=== PATIENT | male | born 1955 ===

== ENCOUNTER 2020-08-13 08:00 | Inpatient (IN) | payer OTHER ==
[2020-10-07 16:41] VITALS: BMI 37.8
[2020-10-08] MEDS ORDERED: THROMBIN (BOVINE) 5,000 UNIT VIAL TP ONE (08:14)
[2020-10-08] MEDS ORDERED: methylPREDNISolone ACET (DEPO) 40 MG/1 ML VIAL ONE (08:14)
[2020-10-08] MEDS ORDERED: BACITRACIN 15 GM TUBE TOPICAL OINTMENT ONE (08:14)
[2020-10-08] MEDS ORDERED: BUPIVACAINE HCL/PF 0.5% (5MG/ML) 10 ML VIAL ONE (08:14)
[2020-10-08] MEDS ORDERED: BENZOIN/ALOE VERA/STORAX/TOLU 58 ML BOTTLE ONE (09:26)
[2020-10-08] MEDS ORDERED: ceFAZolin SODIUM 1 GM VIAL IVPB ONE (09:32)
[2020-10-08] MEDS ORDERED: ONDANSETRON 4 MG/2 ML VIAL IVPUSH PRN (12:09)
[2020-10-08] MEDS ORDERED: ACETAMINOPHEN 1000 MG/100 ML VIAL (NON FORMULARY) IVPB PRN (12:25)
[2020-10-08] MEDS ORDERED: LACTATED RINGERS SOLUTION 1,000 ML IV SCH (12:30)
[2020-10-08] MEDS ORDERED: HYDROmorphone HCl 2 MG/ML VIAL IVPB PRN (12:41)
[2020-10-08] MEDS: D5-1/2NS+20 MEQ KCL - 20 MEQ/1,000 ML INFUS.BAG IV SCH (13:28)
[2020-10-08 13:39] LABS: BASO % 0.6 % (0-2.0); EOS % 2.2 % (0-4.5); HEMATOCRIT 33.1 % (35.4-49); HEMOGLOBIN 11.3 GM/dL (11.7-16.9); LYMPH % 25.5 % (8-40); MCH 28.7 pg (25.7-33.7); MCHC 34.2 g/dl (32.0-35.9); MEAN PLT VOLUME 7.5 fl (7.5-11.1); MONO % 11.6 % (3.8-10.2); NEUT % 60.1 % (42.8-82.8); PLATELET COUNT 230 K/MM3 (134-434); RBC 3.94 M/mm3 (4.00-5.60); RDW 15.6 % (11.9-15.9)
[2020-10-08 13:56] LABS: BLOOD UREA NITROGEN 29.2 mg/dL (7-18)
[2020-10-08 14:10] LABS: CREATININE 1.1 mg/dL (0.55-1.3)
[2020-10-08] MEDS: diazePAM 5 MG TABLET PO SCH ×2 (15:19→21:19)
[2020-10-08] MEDS: POTASSIUM CHLORIDE TABS 20 MEQ TABLET.ER (FP) PO SCH ×2 (16:10→21:19)
[2020-10-08] MEDS: DOCUSATE SODIUM 100 MG CAPSULE (FP) PO SCH ×2 (16:10→21:19)
[2020-10-08] MEDS ORDERED: CEFAZOLIN 1 GM/D5W 1 GM/50 ML BAG IVPB SCH (18:00)
[2020-10-08] MEDS ORDERED: CEFAZOLIN 1 GM in DEXTROSE 5%-WATER - 1 GM/50 ML IVPB IVPB SCH (18:40)
[2020-10-08] MEDS: oxyCODONE HCL 5 MG TABLET PO PRN (18:58)
[2020-10-08] MEDS: MONTELUKAST NA 10 MG TABLET PO SCH (21:19)
[2020-10-08] MEDS: ATORVASTATIN CA 20 MG TABLET (FP) PO SCH (21:19)
[2020-10-08] MEDS: RANOLAZINE E.R. 500 MG TABLET (FP) PO SCH (21:20)
[2020-10-09] MEDS ORDERED: DEXTROSE 5%-WATER - 50 ML IVPB ONE ×2 (02:00→14:30)
[2020-10-09] MEDS ORDERED: ceFAZolin SODIUM 1 GM VIAL ONE ×2 (02:00→14:30)
[2020-10-09] MEDS: D5-1/2NS+20 MEQ KCL - 20 MEQ/1,000 ML INFUS.BAG IV SCH ×3 (03:44→12:40)
[2020-10-09] MEDS: diazePAM 5 MG TABLET PO SCH ×3 (04:42→20:35)
[2020-10-09] MEDS: DOCUSATE SODIUM 100 MG CAPSULE (FP) PO SCH ×3 (06:02→21:40)
[2020-10-09] MEDS: metFORMIN HCL 500 MG TABLET (FP) PO SCH (06:03)
[2020-10-09 07:28] LABS: BASO % 0.6 % (0-2.0); EOS % 3.6 % (0-4.5); HEMATOCRIT 31.4 % (35.4-49); HEMOGLOBIN 10.7 GM/dL (11.7-16.9); LYMPH % 16.3 % (8-40); MCH 28.5 pg (25.7-33.7); MEAN CELL VOLUME 83.7 fl (80-96); MEAN PLT VOLUME 7.2 fl (7.5-11.1); MONO % 11.7 % (3.8-10.2); NEUT % 67.8 % (42.8-82.8); PLATELET COUNT 210 K/MM3 (134-434); RBC 3.75 M/mm3 (4.00-5.60); RDW 16.1 % (11.9-15.9); WHITE BLOOD COUNT 11.1 K/mm3 (4.0-10.0)
[2020-10-09 08:02] LABS: BLOOD UREA NITROGEN 18.1 mg/dL (7-18); CALCIUM 8.6 mg/dL (8.5-10.1)
[2020-10-09 08:07] LABS: BILIRUBIN,TOTAL 0.8 mg/dL (0.2-1); TOT PROT 5.9 g/dl (6.4-8.2)
[2020-10-09 08:10] LABS: ALBUMIN 3.1 g/dl (3.4-5.0)
[2020-10-09] MEDS: TAMSULOSIN HCL 0.4 MG CAP PO SCH ×2 (08:20→09:19)
[2020-10-09] MEDS: FUROSEMIDE 20 MG TABLET (FP) PO SCH (09:19)
[2020-10-09] MEDS: RANOLAZINE E.R. 500 MG TABLET (FP) PO SCH ×2 (09:19→21:40)
[2020-10-09] MEDS: POTASSIUM CHLORIDE TABS 20 MEQ TABLET.ER (FP) PO SCH ×2 (09:20→21:40)
[2020-10-09] MEDS: METOPROLOL TARTRATE 50 MG TABLET (FP) PO SCH (09:20)
[2020-10-09] MEDS: SPIRONOLACTONE 25 MG TABLET PO SCH (09:20)
[2020-10-09] MEDS: PANTOPRAZOLE 40 MG TABLET PO SCH (09:20)
[2020-10-09] MEDS: HYDROCHLOROTHIAZIDE 25 MG TABLET (FP) PO SCH (09:20)
[2020-10-09] MEDS: LORATADINE 10 MG TABLET PO SCH (09:20)
[2020-10-09] MEDS ORDERED: ALBUTEROL SO4 HFA INHALER IH PRN (11:40)
[2020-10-09] MEDS ORDERED: PT OWN MED DRAWER 7, Y5N ONE ×2 (11:51→12:36)
[2020-10-09] MEDS ORDERED: POTASSIUM CHLORIDE TABS 20 MEQ TABLET.ER (FP) PO ONE (12:00)
[2020-10-09] MEDS: BUMETANIDE 1 MG TABLET PO SCH (12:37)
[2020-10-09] MEDS: BUDESONIDE/FORMETEROL FUMARATE 160/4.5 mcg INHALER IH SCH ×2 (12:38→21:40)
[2020-10-09] MEDS ORDERED: CEFAZOLIN 1 GM in DEXTROSE 5%-WATER - 1 GM/50 ML IVPB IVPB SCH (14:15)
[2020-10-09] MEDS: oxyCODONE HCL 5 MG TABLET PO PRN (17:31)
[2020-10-09] MEDS: ATORVASTATIN CA 20 MG TABLET (FP) PO SCH (21:40)
[2020-10-09] MEDS: MONTELUKAST NA 10 MG TABLET PO SCH (21:40)
[2020-10-10] MEDS: diazePAM 5 MG TABLET PO SCH ×3 (04:33→21:49)
[2020-10-10] MEDS: DOCUSATE SODIUM 100 MG CAPSULE (FP) PO SCH ×3 (06:15→21:48)
[2020-10-10] MEDS: metFORMIN HCL 500 MG TABLET (FP) PO SCH (06:15)
[2020-10-10] MEDS: TAMSULOSIN HCL 0.4 MG CAP PO SCH (07:53)
[2020-10-10] MEDS: HYDROCHLOROTHIAZIDE 25 MG TABLET (FP) PO SCH (09:04)
[2020-10-10] MEDS: PANTOPRAZOLE 40 MG TABLET PO SCH (09:04)
[2020-10-10] MEDS: LORATADINE 10 MG TABLET PO SCH (09:04)
[2020-10-10] MEDS: METOPROLOL TARTRATE 50 MG TABLET (FP) PO SCH (09:04)
[2020-10-10] MEDS: SPIRONOLACTONE 25 MG TABLET PO SCH (09:04)
[2020-10-10] MEDS: FUROSEMIDE 20 MG TABLET (FP) PO SCH (09:04)
[2020-10-10] MEDS: RANOLAZINE E.R. 500 MG TABLET (FP) PO SCH ×2 (09:04→21:49)
[2020-10-10] MEDS: BUDESONIDE/FORMETEROL FUMARATE 160/4.5 mcg INHALER IH SCH ×2 (09:07→21:49)
[2020-10-10] MEDS ORDERED: PT OWN MED DRAWER 7, Y5N ONE (10:13)
[2020-10-10] MEDS: POTASSIUM CHLORIDE TABS 20 MEQ TABLET.ER (FP) PO SCH ×2 (10:22→21:48)
[2020-10-10] MEDS: BUMETANIDE 1 MG TABLET PO SCH (10:22)
[2020-10-10] MEDS: LIDOCAINE 5% TOPICAL PATCH TP SCH (10:22)
[2020-10-10] MEDS: OXYMETAZOLINE 0.05% NASAL SOLUTION 15 ML BOTTLE NS PRN (10:23)
[2020-10-10] MEDS ORDERED: DEXAMETHASONE SOD PHOSPHATE 4 MG/1 ML VIAL IVPUSH ONE (11:15)
[2020-10-10] MEDS: oxyCODONE HCL 5 MG TABLET PO PRN (11:21)
[2020-10-10 12:23] LABS: CALCIUM 8.6 mg/dL (8.5-10.1)
[2020-10-10 12:24] LABS: ALBUMIN 3.3 g/dl (3.4-5.0); BLOOD UREA NITROGEN 17.8 mg/dL (7-18)
[2020-10-10 12:28] LABS: BILIRUBIN,TOTAL 0.8 mg/dL (0.2-1); TOT PROT 6.4 g/dl (6.4-8.2)
[2020-10-10] MEDS: ATORVASTATIN CA 20 MG TABLET (FP) PO SCH (21:48)
[2020-10-10] MEDS: MONTELUKAST NA 10 MG TABLET PO SCH (21:49)
[2020-10-10] MEDS ORDERED: LIDOCAINE PATCH REMOVAL MC SCH (22:00)
[2020-10-11] MEDS: DOCUSATE SODIUM 100 MG CAPSULE (FP) PO SCH (05:44)
[2020-10-11] MEDS: diazePAM 5 MG TABLET PO SCH (05:44)
[2020-10-11] MEDS: metFORMIN HCL 500 MG TABLET (FP) PO SCH (06:08)
[2020-10-11 06:22] VITALS: BP 102/69; PULSE 81; TEMP 98.6
[2020-10-11] MEDS: LIDOCAINE 5% TOPICAL PATCH TP SCH (09:57)
[2020-10-11] MEDS: METOPROLOL TARTRATE 50 MG TABLET (FP) PO SCH (09:57)
[2020-10-11] MEDS: TAMSULOSIN HCL 0.4 MG CAP PO SCH (09:57)
[2020-10-11] MEDS: PANTOPRAZOLE 40 MG TABLET PO SCH (09:57)
[2020-10-11] MEDS: LORATADINE 10 MG TABLET PO SCH (09:57)
[2020-10-11] MEDS: HYDROCHLOROTHIAZIDE 25 MG TABLET (FP) PO SCH (09:57)
[2020-10-11] MEDS: POTASSIUM CHLORIDE TABS 20 MEQ TABLET.ER (FP) PO SCH (09:57)
[2020-10-11] MEDS: FUROSEMIDE 20 MG TABLET (FP) PO SCH (09:57)
[2020-10-11] MEDS: RANOLAZINE E.R. 500 MG TABLET (FP) PO SCH (09:57)
[2020-10-11] MEDS: SPIRONOLACTONE 25 MG TABLET PO SCH (09:57)
[2020-10-11] MEDS: BUDESONIDE/FORMETEROL FUMARATE 160/4.5 mcg INHALER IH SCH (09:58)
[2020-10-11] MEDS: OXYMETAZOLINE 0.05% NASAL SOLUTION 15 ML BOTTLE NS PRN (09:58)
== END 2020-10-11 12:44 | disposition home or self-care (01) | DRG 321 ==
LOC: J2C 10-08 04:18 → J8W 10-08 14:58
PROVIDERS: ADMIT Neurological Surgery; ATTEND Neurological Surgery
PROC: 0RT30ZZ Resection of Cervical Vertebral Disc, Open Approach (ICD-10-PCS; 2020-10-08)
PROC: 0RP104Z Removal of Internal Fixation Device from Cervical Vertebral Joint, Open Approach (ICD-10-PCS; 2020-10-08)
PROC: 4A11X4G Monitoring of Peripheral Nervous Electrical Activity, Intraoperative, External Approach (ICD-10-PCS; 2020-10-08)
PROC: 01N10ZZ Release Cervical Nerve, Open Approach (ICD-10-PCS; 2020-10-08)
PROC: 0RG10A0 Fusion of Cervical Vertebral Joint with Interbody Fusion Device, Anterior Approach, Anterior Column, Open Approach (ICD-10-PCS; principal; 2020-10-08 08:30)
DX: M50.121 Cervical disc disorder at C4-C5 level with radiculopathy (principal); M50.021 Cervical disc disorder at C4-C5 level with myelopathy; I10 Essential (primary) hypertension; M25.80 Other specified joint disorders, unspecified joint; E11.9 Type 2 diabetes mellitus without complications
CPT/HCPCS: 36415; 72050-TC-FY; 80051; 80053; 82540; 82565; 82962; 84520; 85025; 86850; 86900; 86901; 94010; 94760; 97116-GP; 97162-GP; C9803; J0131; U0003; U0005